=== PATIENT | male | born 1995 | race Caucasian/White ===

== ENCOUNTER 2025-10-25 23:30 | Emergency (ER) | payer BC, SELFPAY ==
[2025-10-25 23:31] VITALS: BP 131/92; PULSE 70; RESP 16; TEMP 36.5; O2SAT 100; BMI 20.5
--- NOTE | 2025-10-26 00:05 | EDS_ITS ---
HPI History of Present Illness Chief Complaint: Eye Problem Narrative Narrative: Patient was seen and examined after presenting to ED for dog scratch to the left eye patient does not wear contacts does not wear glasses he was playing with his dog when the dog went to reach for a toy and ended up catching his eye. [facility] Medical History (Updated 10/26/25 @ 00:25 by Trista Nguyen) Hypoglycemia Home Medications ?Medication ?Instructions ?Recorded ?Last Taken ?Type NK 10/25/25 Unknown History Allergy/AdvReac Type Severity Reaction Status Date / Time No Known Allergies Allergy Verified 10/25/25 23:34 ROS ROS ED ROS Narrative Pertinent Positives: Left eye pain dog scratch to left eye Pertinent Negatives: Contact lens use glasses use The remainder of review of systems negative unless otherwise stated in the HPI above. Systems reviewed including constitutional, psychiatric, cardiovascular, respiratory, integument, HENT, gastrointestinal. EXAM Physical Exam Narrative Exam Narrative: Patient is afebrile hemodynamically stable does not appear toxic or in distress using tetracaine and fluorescein strips he has an obvious corneal abrasion over his left eye. Negative Sidel sign. He has EOMI. No proptosis no hyphema or hypopyon. Const Vital Signs: 10/25/25 23:31 Temperature 97.7 F L Temperature Source Oral Pulse Rate 70 Respiratory Rate 16 Blood Pressure 131/92 H Blood Pressure Mean 105 Pulse Ox 100 Oxygen Delivery Method Room Air MDM MDM MDM Narrative Medical decision making narrative: Nursing notes, triage notes, available previous documentation, and vital signs were reviewed. Any discrepancies noted were addressed. Differential Diagnoses: Corneal abrasion there is no corneal ulcer or not a globe rupture not compartment syndrome of the eye Interventions: Tetracaine and fluorescein staining for evaluation Antibiotics Given: Ciprofloxacin eyedrop Previous Documentation Reviewed: None available or applicable at this time. ED Course: Patient presenting with dog scratch to the left thigh patient has a corneal abrasion overlying the left eye he does not wear glasses or contact lenses we will provide him with eyedrops here we also updated his tetanus here in the department he states has been at least 10 years since he last had 1. Return precautions follow-up recommendations provided patient follow-up with [facility]. He is stable for discharge home This note was made utilizing voice recognition software. All attempts were made to correct spelling or other errors prior to note completion. However, due to the fast-paced nature of emergency medicine, some errors may still be present. Discharge Plan Triage Chief Complaint: Eye Problem ED Provider: Drew Munoz Dx/Rx/DC Orders Clinical Impression: Corneal abrasion, left, Dog scratch Instructions: ED Corneal Abrasion Prescriptions: No Action NK Primary Care Provider: Shanna Lazo Primary Referrals: [facility] [Provider Group] - As soon as possible Activity Restrictions/Additional Instructions: Follow-up with an eye doctor take these antibiotic drops as prescribed here for you. Please return if you are having worsening symptoms. Print Language: Polish Disposition Disposition: Home, Self Care
[2025-10-26] MEDS: Tetracaine 0.5% Ophthalmic Bottle 1 DRP OPHTHALMIC (00:20)
[2025-10-26] MEDS: Ciprofloxacin 0.3% 2.5ml Bottle 1 DRP LEFT EYE (00:20)
[2025-10-26 00:30] VITALS: BP 131/92; PULSE 70; RESP 16; TEMP 36.5; O2SAT 100
== END 2025-10-26 00:33 | disposition home or self-care (01) ==
PROVIDERS: Emergency Provider Specialist/Technologist Athletic Trainer; Visit Provider Specialist/Technologist Athletic Trainer
DX: S05.02XA Injury of conjunctiva and corneal abrasion without foreign body, left eye, initial encounter (principal); Z23 Encounter for immunization; X58.XXXA Exposure to other specified factors, initial encounter
CPT/HCPCS: 90471; 90715; 99283